=== PATIENT | male | born 1940 | race Caucasian/White ===

== ENCOUNTER 2019-11-01 08:02 | Emergency (ER) | payer MEDICARE, BC ==
--- OUTSIDE RECORDS SUMMARY | 2019-11-01 08:19 | XMS REPORT | Continuity of Care Document ---
:1940 External Reference #:[id number] Author Name Gretchen Talbert NP Address [address] [place] [address] Care Team Providers Name Role Phone Stacey & Hermilo - Physical Care Team Information Solar Sales Advisor Therapy Ant Rodarte - Oncology Care Team Information Solar Sales Advisor [phone] Gretchen Talbert NP - Family Care Team Information Solar Sales Advisor [phone] Problems Active Problems Provider Date Backache Lucina Alejo PA Onset: 10/15/2011 Neutropenia Lucina Alejo PA Onset: 10/15/2011 Low back pain Lucina Alejo PA Onset: 05/22/2006 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 Burn any degree involving less than 10 Gretchen Talbert NP Onset: 08/31/2019 percent of body surface Social History Type Date Description Comments Sex Unknown Tobacco Use Start: Unknown Never Smoked Cigarettes ETOH Use Consumed 1 beer per day in the past Tobacco Use Start: Unknown End: Unknown Patient is a former smoker Smoking Status Reviewed: 06/27/19 Patient is a former smoker Allergies, Adverse Reactions, Alerts Active Allergies Reaction Severity Comments Date Tetracycline 01/24/2015 Medications Active Medications SIG Qnty Indications Ordering Date Provider Pads For Comfor-TENS Use as directed 12units Digiovanale, 08/18/2019 Unit DAINA Evans Rechargeable 9 Volt Use with 2units Digiovanna, 08/18/2019 Batteries Comfor-Tens Unit DAINA Evans Back Support/Dual Wear when back 1units M54.9 Alex Noe, 07/30/2016 Adjustment/Medium bothering prn DO Misc Selenium 1 by mouth every Alex Noe, 01/24/2015 200mcg day DO Capsules Magnesium 1 by mouth every Alex Noe, 01/24/2015 400mg day DO Capsules Ibuprofen 1 po tid with 50tabs Alex Noe, 11/11/2010 600mg Tablets food prn back DO pain Ascorbic Acid 1 po qd Unknown 01/22/2010 500mg Tablets [facility] Vitamin D3 1 po qd Unknown 01/22/2010 1000Unit Capsules Folic Acid 1 po qd Unknown 01/22/2010 400mcg Tablets [facility] 50 1 po qd Unknown 01/22/2010 1000mg Capsules Immunizations CPT Code Status Date Vaccine Reaction Lot # [id number] Given 08/25/2019 Fluzone Highdose Age 65 And Over Preservative & Antibiotic Free 67657 Given 07/19/2018 Fluzone Highdose Age 65 And Given at [facility] Over Preservative & Pharmacy,Rt 281 Antibiotic Free 92261 Given 05/11/2018 Pneumococcal 23 Immunization Pt tolerated well [id number] Adult Or Immunosuppressed Patient 69570 Given 08/11/2017 Fluzone Highdose Age 65 And [facility] Over Preservative & Antibiotic Free 22242 Given 07/30/2016 Prevnar 13 Pneumococal [id number] Conjugate Vaccine Q2038 Given 07/22/2016 Fluzone Trivalent Immunization Q2038 Given 08/06/2015 Fluzone Trivalent Immunization 74676 Given 08/06/2015 Fluzone Highdose Age 65 And Over Preservative & Antibiotic Free 60722 Given 02/23/2015 Tetanus And Diptheria Toxoid [id number] 7 Years And Older Preserv Free 76404 Given 07/27/2014 Fluzone Highdose Age 65 And [facility] Over Preservative & Antibiotic Free 17942 Given 08/13/2013 Afluria Or Fluvirin Flu Vac [facility] Intramuscular 96754 Given 08/13/2013 Afluria Or Fluvirin Flu Vac Intramuscular 47586 Given 07/17/2011 Zoster (Zostavax) 38189 Given 09/28/2002 Pneumococcal 23 Immunization Adult Or Immunosuppressed Patient 62798 Refused 05/11/2018 Pneumococcal 23 Immunization Adult Or Immunosuppressed Patient Vital Signs Date Vital Result Comment 09/07/2019 7:59am Weight 152.00 lb Heart Rate 84 /min BP Systolic 128 mmHg BP Diastolic 72 mmHg Respiratory Rate 18 /min Height 64.5 inches 5'4.50" BMI (Body Mass Index) 25.7 kg/m2 08/31/2019 8:01am Weight 152.00 lb Heart Rate 74 /min BP Systolic 124 mmHg BP Diastolic 64 mmHg Respiratory Rate 16 /min Height 64.5 inches 5'4.50" AMIRA WHITTINGTONN 06/27/19 BMI (Body Mass Index) 25.7 kg/m2 Results Description No Information Available Procedures Date Code Description Status 03/14/2009 48578878 Colonoscopy Completed Medical Devices Description No Information Available Encounters Type Date Location Provider Dx Diagnosis Office Visit 08/31/2019 8:00a [facility] Gretchen Talbert NP M54.5 Low back pain T31.0 Wade involving less than 10% of body surface Office Visit 08/24/2019 8:00a [facility] Gretchen Talbert NP M54.5 Low back pain M54.5 Low back pain T31.0 Wade involving less than 10% of body surface T31.0 Wade involving less than 10% of body surface Office Visit 06/27/2019 9:30a [facility] DigCristina franklin, Z00.00 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 for general [employer] 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 adult medical exam w/o abnormal findings E55.9 Vitamin D deficiency, unspecified D70.9 Neutropenia, unspecified M25.512 Pain in LEFT shoulder Z13.31 Encounter for screening for depression Z68.25 Body mass index (BMI) 25.0-25.9, adult Assessments Date Code Description Provider 09/07/2019 T31.0 Wade involving less than 10% of body Gretchen Talbert ELECTRIC GAS APPLIANCES 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 surface 09/07/2019 M54.5 Low back pain Gretchen Talbert NP 08/31/2019 M54.5 Low back pain StraGretchen beckwith NP 08/31/2019 T31.0 Wade involving less than 10% of body Gretchen Talbert NP surface 08/24/2019 M54.5 Low back pain Gretchen Talbert NP 08/24/2019 M54.5 Low back pain StraGretchen beckwith NP 08/24/2019 T31.0 Wade involving less than 10% of body StraGretchen beckwith, ELECTRIC GAS APPLIANCES 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 surface 08/24/2019 T31.0 Wade involving less than 10% of body Strauf, Gretchen, ELECTRIC GAS APPLIANCES 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 surface 06/27/2019 Z00.00 Encounter for general adult medical Cristina Ervin NP examination without abnormal findings 06/27/2019 E55.9 Vitamin D deficiency, unspecified Cristina Ervin, DAINA 06/27/2019 D70.9 Neutropenia, unspecified Cristina Ervin, DAINA 06/27/2019 M25.512 Pain in LEFT shoulder Cristnia Ervin NP 06/27/2019 Z13.31 Encounter for screening for depression Cristina Ervin NP 06/27/2019 Z68.25 Body mass index (BMI) 25.0-25.9, adult Cristina Ervin NP Plan of Treatment Future Appointment(s):09/14/2019 8:00 am - Gretchen Talbert NP at [facility]09/07/2019 - Gretchen Talbert NPT31.0 Wade involving less than 10% of body surfaceComments: Burn to left low back sustained from heating padContinue to clean daily with soap and water then apply antibiotic ointment. DO NOT continue to use heating pad at site of injuryWill follow closelyMonitor for signs of infection: redness , warmth, drainage, development of fever, malaise and go to E.R. with any of these symptoms.Follow up:In one week to reassess burnM54.5 Low back painComments :Chronic low back pain with intermittent flares Advised if newly occuring sxs develop suggest restarting physical therapy. Recommend continuing to wear brace and use TENS unit. Is awaiting pads sent by [employer] at this time. DO NOT continue to use heating pad at this time due to burn caused by this. May use aijg-sjk-oyrwxgw analgesics if tolerated. Call if not seeming to improve. Functional Status Description No Information Available Mental Status Description No Information Available Referrals Description No Information Available
--- OUTSIDE RECORDS SUMMARY | 2019-11-01 08:19 | XMS REPORT | Continuity of Care Document ---
:1940 External Reference #:[id number] Author Name Gretchen Talbert NP Address [address] [place] [address] Care Team Providers Name Role Phone Stacey & Hermilo - Physical Care Team Information Computer Numeric Control Setter [phone] Therapy Ant Rodarte - Oncology Care Team Information Computer Numeric Control Setter [phone] Gretchen Talbert NP - Family Care Team Information Computer Numeric Control Setter [phone] Problems Active Problems Provider Date Backache Lucina [...] 1 po qd Unknown 01/22/2010 400mcg Tablets [facility] 50 1 po qd Unknown 01/22/2010 1000mg Capsules Immunizations CPT Code Status Date Vaccine Reaction Lot # [id number] Given 07/19/2018 Fluzone Highdose Age 65 And Given at [facility] Over Preservative & Pharmacy,Rt 281 Antibiotic Free 06906 Given 05/11/2018 Pneumococcal 23 Immunization Pt tolerated well [id number] Adult Or Immunosuppressed Patient 81763 Given 08/11/2017 Fluzone Highdose Age 65 And [facility] Over Preservative & Antibiotic Free 12409 Given 07/30/2016 Prevnar 13 Pneumococal [id number] Conjugate Vaccine Q2038 Given 07/22/2016 Fluzone Trivalent Immunization Q2038 Given 08/06/2015 Fluzone Trivalent Immunization 31646 Given 08/06/2015 Fluzone Highdose Age 65 And Over Preservative & Antibiotic Free 24008 Given 02/23/2015 Tetanus And Diptheria Toxoid [id number] 7 Years And Older Preserv Free 24819 Given 07/27/2014 Fluzone Highdose Age 65 And [facility] Over Preservative & Antibiotic Free 55472 Given 08/13/2013 Afluria Or Fluvirin Flu Vac [facility] Intramuscular 35785 Given 08/13/2013 Afluria Or Fluvirin Flu Vac Intramuscular 91670 Given 07/17/2011 Zoster (Zostavax) 12305 Given 09/28/2002 Pneumococcal 23 Immunization Adult Or Immunosuppressed Patient 35844 Refused 05/11/2018 Pneumococcal 23 Immunization Adult Or Immunosuppressed Patient Vital Signs Date Vital Result Comment 08/31/2019 8:01am Weight 152.00 lb Heart Rate 74 /min BP Systolic 124 mmHg BP Diastolic 64 mmHg Respiratory Rate 16 /min Height 64.5 inches 5'4.50" SATONG 06/27/19 BMI (Body Mass Index) 25.7 kg/m2 08/24/2019 8:01am Weight 151.50 lb Heart Rate 76 /min BP Systolic 130 mmHg BP Diastolic 74 mmHg Respiratory Rate 16 /min Height 64.5 inches 5'4.50" SATONG 06/27/19 BMI (Body Mass Index) 25.6 kg/m2 Results Description No Information Available Procedures Date Code Description Status 03/14/2009 [id number] Colonoscopy Completed Medical Devices Description No Information Available Encounters Type Date Location Provider Dx Diagnosis Office Visit 08/31/2019 8:00a [facility] Gretchen Talbert NP M54.5 Low back pain T31.0 Wade involving less than 10% of body surface Office Visit 08/24/2019 8:00a [facility] Gretchen Talbert NP M54.5 Low back pain M54.5 Low back pain T31.0 Wade involving less than 10% of body surface T31.0 Wade involving less than 10% of body surface Office Visit 06/27/2019 9:30a [facility] Cristina Ervin, Z00.00 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 general HAND 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 w/o abnormal findings E55.9 Vitamin D deficiency, unspecified D70.9 Neutropenia, unspecified M25.512 Pain in LEFT shoulder Z13.31 Encounter for screening for depression Z68.25 Body mass index (BMI) 25.0-25.9, adult Assessments Date Code Description Provider 08/31/2019 M54.5 Low back pain Gretchen Talbert NP 08/31/2019 T31.0 Wade involving less than 10% of body Gretchen Talbert NP surface 08/24/2019 M54.5 Low back pain Gretchen Talbert NP 08/24/2019 M54.5 Low back pain Gretchen Talbert, DAINA 08/24/2019 T31.0 Wade involving less than 10% of body StraGretchen beckwith, HAND FUNNEL COATER surface 08/24/2019 T31.0 Wade involving less than 10% of body StraGretchen beckwith, DAINA surface 06/27/2019 Z00.00 Encounter for general adult medical Cristina Ervin NP examination without abnormal findings 06/27/2019 E55.9 Vitamin D deficiency, unspecified Cristina Ervin NP 06/27/2019 D70.9 Neutropenia, unspecified Cristina Ervin NP 06/27/2019 M25.512 Pain in LEFT shoulder Cristina Ervin NP 06/27/2019 Z13.31 Encounter for screening for depression Cristina Ervin NP 06/27/2019 Z68.25 Body mass index (BMI) 25.0-25.9, adult Cristina Ervin NP Plan of Treatment Future Appointment(s):09/07/2019 8:00 am - Gretchen Talbert NP at [facility]08/31/2019 - Gretchen Talbert NPM54.5 Low back painComments:Chronic low back pain with intermittent flares Advised if newly occuring sxs develop suggest restarting physical therapy. Recommend continuing to wear brace and use TENS unit. Pt has not been in contact with [employer] to obtain approval to fill scriptsDO NOT continue to use heating pad at this time due to burn caused by this. May use fbwg-lbe-xgrzcwi analgesics if tolerated. Call if not seemingto improve.T31.0 Wade involving less than 10% of body surfaceComments:Burn to left low back sustained from heating padContinue to clean daily with soap and water then apply antibiotic ointment. DO NOT continue to use heating pad at site of injuryWill follow closelyMonitor for signs of infection: redness, warmth , drainage, development of fever, malaise and go to E.R. with any of these symptoms.Follow up:In one week to reassess burn Functional Status Description No Information Available Mental Status Description No Information Available Referrals Description No Information Available
--- OUTSIDE RECORDS SUMMARY | 2019-11-01 08:19 | XMS REPORT | Continuity of Care Document ---
:1940 External Reference #:[id number] Author Name Gretchen Talbert NP Address [address] [place] [address] Care Team Providers Name Role Phone Stacey & Hermilo - Physical Care Team Information Quality Assurance Coordinator Therapy Ant Rodarte - Oncology Care Team Information Quality Assurance Coordinator [phone] Gretchen Talbert NP - Family Care Team Information Quality Assurance Coordinator [phone] Problems Active Problems Provider Date Backache Lucina [...] 1 po qd Unknown 01/22/2010 400mcg Tablets [place] 50 1 po qd Unknown 01/22/2010 1000mg Capsules Immunizations CPT Code Status Date Vaccine Reaction Lot # [id number] Given 08/25/2019 Fluzone Highdose Age 65 And Over Preservative & Antibiotic Free 40622 Given 07/19/2018 Fluzone Highdose Age 65 And Given at [facility] Over Preservative & Pharmacy,R[address] Antibiotic Free 01919 Given 05/11/2018 Pneumococcal 23 Immunization Pt tolerated well [id number] Adult Or Immunosuppressed Patient 43657 Given 08/11/2017 Fluzone Highdose Age 65 And [facility] Over Preservative & Antibiotic Free 15241 Given 07/30/2016 Prevnar 13 Pneumococal [id number] Conjugate Vaccine Q2038 Given 07/22/2016 Fluzone Trivalent Immunization Q2038 Given 08/06/2015 Fluzone Trivalent Immunization 12058 Given 08/06/2015 Fluzone Highdose Age 65 And Over Preservative & Antibiotic Free 79724 Given 02/23/2015 Tetanus And Diptheria Toxoid [id number] 7 Years And Older Preserv Free 48157 Given 07/27/2014 Fluzone Highdose Age 65 And [facility] Over Preservative & Antibiotic Free 82580 Given 08/13/2013 Afluria Or Fluvirin Flu Vac [facility] Intramuscular 75732 Given 08/13/2013 Afluria Or Fluvirin Flu Vac Intramuscular 67621 Given 07/17/2011 Zoster (Zostavax) 20283 Given 09/28/2002 Pneumococcal 23 Immunization Adult Or Immunosuppressed Patient 46757 Refused 05/11/2018 Pneumococcal 23 Immunization Adult Or Immunosuppressed Patient Vital Signs Date Vital Result Comment 09/14/2019 8:03am Weight 152.50 lb Heart Rate 76 /min BP Systolic 126 mmHg BP Diastolic 74 mmHg Respiratory Rate 16 /min Height 64.5 inches 5'4.50" BMI (Body Mass Index) 25.8 kg/m2 09/07/2019 7:59am Weight 152.00 lb Heart Rate 84 /min BP Systolic 128 mmHg BP Diastolic 72 mmHg Respiratory Rate 18 /min Height 64.5 inches 5'4.50" BMI (Body Mass Index) 25.7 kg/m2 Results Description No Information Available Procedures Date Code Description Status 03/14/2009 [id number] Colonoscopy Completed Medical Devices Description No Information Available Encounters Type Date Location Provider Dx Diagnosis Office Visit 09/07/2019 8:00a [facility] Gretchen Talbert NP T31.0 Wade involving less than 10% of body surface M54.5 Low back pain Office Visit 08/31/2019 8:00a [facility] Gretchen Talbert NP M54.5 Low back pain T31.0 Wade involving less than 10% of body surface Office Visit 08/24/2019 8:00a [facility] Gretchen Talbert NP M54.5 Low back pain M54.5 Low back pain T31.0 Wade involving less than 10% of body surface T31.0 Wade involving less than 10% of body surface Office Visit 06/27/2019 9:30a 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 w/o abnormal findings E55.9 Vitamin D deficiency, unspecified D70.9 Neutropenia, unspecified M25.512 Pain in LEFT shoulder Z13.31 Encounter for screening for depression Z68.25 Body mass index (BMI) 25.0-25.9, adult Assessments Date Code Description Provider 09/14/2019 T31.0 Wade involving less than 10% of body Gretchen Talbert NP surface 09/14/2019 M54.5 Low back pain Gretchen Talbert NP 09/07/2019 T31.0 Wade involving less than 10% of body Gretchen Talbert NP surface 09/07/2019 M54.5 Low back pain Gretchen Talbert NP 08/31/2019 M54.5 Low back pain Gretchen Talbert NP 08/31/2019 T31.0 Wade involving less than 10% of body Gretchen Talbert NP surface 08/24/2019 M54.5 Low back pain Gretchen Talbert NP 08/24/2019 M54.5 Low back pain Gretchen Talbert NP 08/24/2019 T31.0 Wade involving less than 10% of body Gretchen Talbert NP surface 08/24/2019 T31.0 Wade involving less than 10% of body Gretchen Talbert NP surface 06/27/2019 Z00.00 Encounter for general adult [...] adult Cristina Ervin NP Plan of Treatment 09/14/2019 - Gretchen Talbert NPT31.0 Wade involving less than 10% of body surfaceComments:Burn to left low back sustained from heating pad. Skin is completely closed at site of injury. Advised itchining is likely due to skin regeneration. Cool compresses or OTC benadryl or claritin can be helpful with this. Continue to avoid using heating pad for 3-4 more weeks to allow site to completely heal.Monitor for signs of infection: redness, warmth, drainage, development of fever, malaise and go to E.R. with any of these symptoms. Call with any changesFollow up:As rxuvaxH85.5 Low back painComments:Chronic low back pain with intermittent flares Advised if newly occuring sxs develop suggest restarting physical therapy. Recommend continuing to wear brace and use TENS unit. Is awaiting pads sent by [employer] at this time. DO NOT continue to use heating pad at this time as above. May use stmp-wql-oysmgyd analgesics if tolerated. Call if not seeming to improve.Follow up:As needed Functional Status Description No Information Available Mental Status Description No Information Available Referrals Description No Information Available
--- OUTSIDE RECORDS SUMMARY | 2019-11-01 08:19 | XMS REPORT | Continuity of Care Document ---
:1940 External Reference #:[id number] Author Name Gretchen Talbert NP Address [address] [place] [address] Care Team Providers Name Role Phone Stacey & Hermilo - Physical Care Team Information Drapery Examiner Therapy Ant Rodarte - Oncology Care Team Information Drapery Examiner [phone] Gretchen Talbert NP - Family Care Team Information Drapery Examiner [phone] Problems Active Problems Provider Date Backache Lucina [...] DO Misc Selenium 1 by mouth every Aelx Noe, 01/24/2015 200mcg day DO Capsules Magnesium 1 by mouth every Alex Noe, 01/24/2015 400mg day DO Capsules Ibuprofen 1 po tid with 50tabs Alex Noe, 11/11/2010 600mg Tablets food prn back DO pain Ascorbic Acid 1 po qd Unknown 01/22/2010 500mg Tablets [facility] Vitamin D3 1 po qd Unknown 01/22/2010 1000Unit Capsules Folic Acid 1 po qd Unknown 01/22/2010 400mcg Tablets [facility] 50 1 po qd Unknown 01/22/2010 1000mg Capsules Immunizations CPT Code Status Date Vaccine Reaction Lot # [id number] Given 08/25/2019 Fluzone Highdose Age 65 And Over Preservative & Antibiotic Free 21334 Given 07/19/2018 Fluzone Highdose Age 65 And Given at [facility] Over Preservative & Pharmacy,Rt 281 Antibiotic Free 14837 Given 05/11/2018 Pneumococcal 23 Immunization Pt tolerated well [id number] Adult Or Immunosuppressed Patient 86195 Given 08/11/2017 Fluzone Highdose Age 65 And [facility] Over Preservative & Antibiotic Free 51574 Given 07/30/2016 Prevnar 13 Pneumococal [id number] Conjugate Vaccine Q2038 Given 07/22/2016 Fluzone Trivalent Immunization Q2038 Given 08/06/2015 Fluzone Trivalent Immunization 53615 Given 08/06/2015 Fluzone Highdose Age 65 And Over Preservative & Antibiotic Free 13669 Given 02/23/2015 Tetanus And Diptheria Toxoid [id number] 7 Years And Older Preserv Free 80401 Given 07/27/2014 Fluzone Highdose Age 65 And [facility] Over Preservative & Antibiotic Free 12122 Given 08/13/2013 Afluria Or Fluvirin Flu Vac [facility] Intramuscular 42932 Given 08/13/2013 Afluria Or Fluvirin Flu Vac Intramuscular 37246 Given 07/17/2011 Zoster (Zostavax) 46170 Given 09/28/2002 Pneumococcal 23 Immunization Adult Or Immunosuppressed Patient 18394 Refused 05/11/2018 Pneumococcal 23 Immunization Adult Or [...] Available Procedures Date Code Description Status 03/14/2009 [id number] Colonoscopy Completed Medical Devices Description No Information Available Encounters Type Date Location Provider Dx Diagnosis Office Visit 08/31/2019 8:00a [facility] Gretchen Talbert NP M54.5 Low back pain T31.0 Wade involving less than 10% of body surface Office Visit 08/24/2019 8:00a [facility] Gretchen Talbert NP M54.5 Low back pain M54.5 Low back pain T31.0 Wade involving less than 10% of body surface T31.0 Wade involving less than 10% of body surface Office Visit 06/27/2019 9:30a [facility] DigCristina franklin, Z00.00 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 w/o abnormal findings E55.9 Vitamin D deficiency, unspecified D70.9 Neutropenia, unspecified M25.512 Pain in LEFT shoulder Z13.31 Encounter for screening for depression Z68.25 Body mass index (BMI) 25.0-25.9, adult Assessments Date Code Description Provider 09/07/2019 T31.0 [place] involving less than 10% of body Gretchen Talbert STORES LABORER surface 09/07/2019 M54.5 Low back pain Gretchen Talbert NP 08/31/2019 M54.5 Low back pain StraGretchen beckwith NP 08/31/2019 T31.0 Wade involving less than 10% of body Gretchen Talbert NP surface 08/24/2019 M54.5 Low back pain Gretchen Talbert NP 08/24/2019 M54.5 Low back pain StraGretchen beckwith NP 08/24/2019 T31.0 Wade involving less than 10% of body StraGretchen beckwith, STORES LABORER surface 08/24/2019 T31.0 Wade involving less than 10% of body Strauf, Gretchen, STORES LABORER surface 06/27/2019 Z00.00 Encounter for general adult medical Cristina Ervin NP examination without abnormal findings 06/27/2019 E55.9 Vitamin D deficiency, unspecified Cristina Ervin, DAINA 06/27/2019 D70.9 Neutropenia, unspecified Cristina Ervin, DAINA 06/27/2019 M25.512 Pain in LEFT shoulder Cristina Ervin NP 06/27/2019 Z13.31 Encounter for screening for depression Cristina Ervin NP 06/27/2019 Z68.25 Body mass index (BMI) 25.0-25.9, adult Cristina Ervin NP Plan of Treatment Future Appointment(s):09/14/2019 8:00 am - Gretchen Talbert NP at [facility]09/07/2019 - Gretchen Talbert NPT31.0 Wade involving less [...] TENS unit. Is awaiting pads sent by [employer] at this time. DO NOT continue to use heating pad at this time due to burn caused by this. May use dufd-nms-nswnjph analgesics if tolerated. Call if not seeming to improve. Functional Status Description No Information Available Mental Status Description No Information Available Referrals Description No Information Available
[2019-11-01 08:25] VITALS: BP 130/65
--- NOTE | 2019-11-01 09:06 | UC ---
Respiratory Complaint HPI - HPI Summary HPI Summary: cough x 3 weeks cough is productive , worse with deep breathing better with rest, no fever, + chills, decrease activity no sob , + nasal congestion , pnd - History of Current Complaint Chief Complaint: UCGeneralIllness Stated Complaint: COUGH Time Seen by Provider: 11/01/19 08:28 Hx Obtained From: Patient Onset/Duration: Gradual Onset, Lasting Weeks - 3, Still Present Timing: Constant Severity Initially: Moderate Severity Currently: Moderate Pain Intensity: 0 Pain Scale Used: 0-10 Numeric Character: Cough: Nonproductive Aggravating Factors: Exertion, Deep Breaths Alleviating Factors: Nothing Associated Signs And Symptoms: Positive: Chills, Wheezing, URI, Nasal Congestion. Negative: Dyspnea, Fever - Allergies/Home Medications Allergies/Adverse Reactions: Allergies Allergy/AdvReac Type Severity Reaction Status Date / Time tetracycline Allergy Rash Verified 11/01/19 08:26 PMH/Surg Hx/FS Hx/Imm Hx Cardiovascular History: Hypertension - Surgical History Surgical History: Yes Surgery Procedure, Year, and Place: 1977- SURGERY - Family History Known Family History: Negative: Diabetes - Social History Alcohol Use: None Substance Use Type: None Smoking Status (MU): Never Smoked Tobacco Review of Systems All Other Systems Reviewed And Are Negative: Yes Constitutional: Positive: Chills, Fatigue Skin: Positive: Negative Eyes: Positive: Negative ENT: Positive: Sore Throat, Nasal Discharge Respiratory: Positive: Cough Cardiovascular: Positive: Negative Is Patient Immunocompromised?: No Physical Exam Triage Information Reviewed: Yes Appearance: Well-Appearing, No Pain Distress, Well-Nourished Vital Signs: Initial Vital Signs Temp 98.2 F 11/01/19 08:21 Pulse 79 11/01/19 08:21 Resp 16 11/01/19 08:21 BP 130/65 11/01/19 08:21 Pulse Ox 100 11/01/19 08:21 Vital Signs Reviewed: Yes Eye Exam: Normal Eyes: Positive: Conjunctiva Clear ENT Exam: Normal ENT: Positive: Normal ENT inspection, Hearing grossly normal, Pharynx normal, Nasal congestion Neck: Positive: Supple, Nontender, No Lymphadenopathy Respiratory: Positive: Crackles - left lower lungs. Negative: Wheezing Cardiovascular: Positive: RRR Abdominal Exam: Normal Respiratory Course/Dx - Differential Dx/Diagnosis Provider Diagnosis: Bronchitis Discharge ED - Sign-Out/Discharge Documenting (check all that apply): Patient Departure All imaging exams completed and their final reports reviewed: No Studies - Discharge Plan Condition: Stable Disposition: HOME Prescriptions: DOXYcycline CAP(*) [DOXYcycline 100MG CAP(*)] 100 mg PO BID #20 cap Patient Education Materials: Acute Bronchitis (ED) Referrals: Cristina Ervin [Primary Care Provider] - 7 Days - Billing Disposition and Condition Condition: STABLE Disposition: Home
== END 2019-11-01 08:53 | disposition home or self-care (01) ==
LOC: UCCORT 08:02
DX: J40 Bronchitis, not specified as acute or chronic (principal); I10 Essential (primary) hypertension; Z88.1 Allergy status to other antibiotic agents
CPT/HCPCS: 99212; G0463